=== PATIENT | female | born 1995 | race Caucasian/White ===

== ENCOUNTER 2022-07-31 10:02 | Emergency (ER) | payer MEDICAID, SELFPAY ==
[2022-07-31 10:10] VITALS: BP 125/80; PULSE 83; RESP 20; TEMP 36.7; O2SAT 98; BMI 28.9
--- NOTE | 2022-07-31 10:25 | EXP.UTC ---
Discharge Plan Disposition Patient Disposition: Home, Self-Care Condition: Good Prescriptions Prescriptions: New prednisone 5 mg tablets,dose pack See Rx Instructions .ROUTE .COMPLEX Qty: 21 0RF Rx Instructions: take as directed on package instructions Referrals Follow up/Referrals: Provider,Referral, MD [Primary Care Provider] - See instructions Activity Restrictions/Add. Instructions Additional Instructions/Restrictions: Oatmeal bathes may help with itching and irritation of rash Start oral steriods tomorrow Follow up with your Family Doctor and OBGYN if no improvement or any worsening of symptoms Return if needed Straight to ER if any life threatening symptoms Over the counter benadryl may help with the itching Make sure to moisturize the skin may try coal tar soap this may help with the itching of the skin Clinical Impressions Clinical Impression: Urticaria Instructions Patient Instructions: JESSICA Hunt for Hives, Prednisone Discharge ED Provider: Julianne Mcgowan [facility] [place] General Stated complaint: 3 Wks , rash arms/legs,abd Mode of Arrival: Ambulatory Source of Information: Patient Limitations: No Limitations Time Seen by Provider: 07/31/22 10:25 Description of Symptoms (Recalled from Triage Doc. by RN): PATIENT C/O RASH TO STOMACH THAT STARTED APPROX 1.5 WEEKS AGO AND HAS SINCE SPREAD TO LEGS, ARMS, AND BACK. HEENT Symptoms (Recalled from RN notes): No Resp Symptoms (Recalled from RN notes): No Skin Symptoms (Recalled from RN notes): Yes MS Symptoms (Recalled from RN notes): No Functional Status (Recalled from RN notes): WNL History of Present Illness Provider Complaint: Patient states that she had a baby about 3 weeks ago States that she started with rash on her abdomen and it has since spread to her arms,legs, abdomen and back and it is very itchy States that she thought it was postpardom rash and she has been using topical steriod creams but hasnt helped States that she is not sure if she may be having a reaction to something or not Related Data Previous Rx's Medication Instructions Recorded prednisone 5 mg tablets in a dose See Rx Instructions PO .COMPLEX 07/31/22 pack #21 tabs Allergies Allergy/AdvReac Type Severity Reaction Status Date / Time No Known Allergies Allergy Verified 07/31/22 10:20 Worker's Comp Is this a Worker's Comp case?: No [facility] Disclaimer: The information contained in this section may have been updated after the patient was seen, as this information can be updated by other users. Medical History (Updated 07/31/22 @ 10:30 by Julianne Mcgowan APRN) Anxiety GERD (gastroesophageal reflux disease) Surgical History (Updated 07/31/22 @ 10:20 by Naima Lopez RN) Hx of tonsillectomy Social History Smoking Status: Unknown if ever smoked alcohol intake: never current occupational status: employed Travel in the last 8 weeks: None ROS Obtained: Yes All systems reviewed & no additional complaints except as documented and Yes Systems reviewed as appropriate & no additional complaints except as documented Constitutional Constitutional: Reports system reviewed and no additional complaints, except as documented and Reports as per HPI ENT Ears, Nose, Mouth, and Throat: Reports system reviewed and no additional complaints, except as documented and Reports as per HPI Cardiovascular Cardiovascular: Reports system reviewed and no additional complaints, except as documented and Reports as per HPI Respiratory Respiratory: Reports system reviewed and no additional complaints, except as documented and Reports as per HPI Integumentary/Breasts Skin/Breast: Reports system reviewed and no additional complaints, except as documented, Reports as per HPI, Reports pruritus and Reports rash Physical Exam General General appearance: alert and in no apparent distress Respiratory Respiratory exam: Present normal lung sounds bilaterally; Absent respir
[2022-07-31 10:54] VITALS: BP 125/80; PULSE 83; RESP 20; TEMP 36.7; O2SAT 98
== END 2022-07-31 11:00 | disposition home or self-care (01) ==
PROVIDERS: Emergency Provider Nurse Practitioner
DX: O99.73 Diseases of the skin and subcutaneous tissue complicating the puerperium (principal); L50.9 Urticaria, unspecified
CPT/HCPCS: 96372; 99204; 99212; G0463

== ENCOUNTER → 2023-03-03 23:09 | Outpatient (CLI) | payer MEDICAID, SELFPAY ==
[2023-03-03 17:56] LABS: Coronavirus 19, PCR Not Detected (NotDetected); Influenza A, PCR Not Detected (NotDetected); Influenza B, PCR Not Detected (NotDetected)
== END ==
PROVIDERS: PCP Student in an Organized Health Care Education/Training Program; Visit Provider Student in an Organized Health Care Education/Training Program
DX: R05.9 Cough, unspecified (principal)
CPT/HCPCS: 87636

== ENCOUNTER 2025-02-25 12:04 | Emergency (ER) | payer SELFPAY ==
[2025-02-25 12:26] VITALS: BP 159/95; PULSE 110; RESP 18; TEMP 37.2; O2SAT 99; BMI 25.0
[2025-02-25 12:41] LABS: Microscopic, Urine URINE MICROSCOPIC (MICROSCOPIC)
[2025-02-25 12:42] LABS: Hematocrit 41.0 % (37.0-47.0); Hemoglobin 15.0 g/dL (12.2-16.2); Immature Granulocytes % 0.4 %; Mean Corpuscular HGB Conc 36.6 g/dL (31.8-35.4); Mean Corpuscular Hemoglobin 31.8 pg (27.0-31.2); Mean Corpuscular Volume 86.9 fl (81-99); Nucleated Red Blood Cells % 0 %; Platelet Count 261 K/mm3 (142-424); Red Blood Count 4.72 M/mm3 (4.20-5.40); Red Cell Distribution Width-SD 36.5 fL; White Blood Count 14.0 K/mm3 (4.8-10.8)
[2025-02-25 12:46] LABS: Bilirubin,Urine Negative (Negative); Color,Urine YELLOW (Yellow); Glucose,Urine (UA) Negative (Negative); Ketones,Urine Negative (Negative); Leukocyte Esterase,Urine Negative (Negative); PH,Urine 6.0 (5.0-8.5); Protein,Urine Negative (Negative); Specific Gravity, Urine >= 1.030 (1.005-1.030); Urobilinogen,Urine 0.2 EU/dl (0.2)
[2025-02-25 12:47] LABS: Urine Pregnancy, HCG Qual. Negative (Negative)
[2025-02-25 12:48] LABS: Anion Gap 18.0 mEq/L (5-15); Blood Urea Nitrogen 12 mg/dl (7-17); Carbon Dioxide 24 mmol/L (22.0-30.0); Chloride 103 mmol/L (98-107); Creatinine,Serum 0.70 mg/dl (0.52-1.04); Potassium 4.0 mmoL/L (3.5-5.1); Sodium 141 mmol/L (136-145)
[2025-02-25 12:49] LABS: Alanine Aminotransferase 34 U/L (12-78); Albumin Level 5.1 g/dl (3.5-5.0); Albumin/Globulin Ratio 1.2 (1.1-1.8); Alkaline Phosphatase 82 U/L (38-126); Aspartate Amino Transferase 37 U/L (14-36); Bilirubin,Total 3.9 mg/dl (0.2-1.3); Calcium 9.8 mg/dl (8.4-10.2); Creatinine Clearance Estimated 135 mL/min (50-200); Estimated Glomerular Filt Rate 98 ml/min (>60); GFR (African American) 119 ML/MIN (>60); Globulin 4.3 g/dL (1.3-3.2); Glucose 96 mg/dl (74-100); Lipase 64 U/L (23-300); Total Protein,Serum 9.4 g/dl (6.3-8.2)
[2025-02-25 13:16] LABS: Bacteria,Urine 1+ /lpf; Mucus,Urine 4+ /lpf
[2025-02-25 14:27] LABS: Hepatitis C Ab Qual. W/ RFX NEGATIVE (Negative)
[2025-02-25 14:48] VITALS: BP 128/85; PULSE 99; RESP 18; O2SAT 100
--- NOTE | 2025-02-25 15:07 | XR_ITS ---
PROCEDURE INFORMATION: Exam: XR Chest Exam date and time: 02/25/2025 3:39 PM Age: 29 years old Clinical indication: Shortness of breath; Additional info: Short of breath TECHNIQUE: Imaging protocol: Radiologic exam of the chest. Views: 1 view. COMPARISON: No relevant prior studies available. FINDINGS: Lungs: Clear lungs. Pleural spaces: No pneumothorax or pleural effusion. Heart/Mediastinum: Heart size is normal. Bones/joints: Unremarkable. IMPRESSION: No acute findings.
--- NOTE | 2025-02-25 15:07 | CT_ITS ---
PROCEDURE INFORMATION: Exam: CT Abdomen And Pelvis With Contrast Exam date and time: 02/25/2025 3:45 PM Age: 29 years old Clinical indication: Abdominal pain TECHNIQUE: Imaging protocol: Computed tomography of the abdomen and pelvis with contrast. Radiation optimization: All CT scans at this facility use at least one of these dose optimization techniques: automated exposure control; mA and/or kV adjustment per patient size (includes targeted exams where dose is matched to clinical indication); or iterative reconstruction. Contrast material: ISOVUE; Contrast volume: 75 ml; Contrast route: IV; COMPARISON: CR XR CHEST PORTABLE 02/25/2025 3:39 PM FINDINGS: Pleural spaces: Calcified pleural plaque at the left lung base. Liver: Unremarkable. No abnormally enhancing liver lesions. Gallbladder and biliary ducts: Gallbladder/biliary ducts: Cholecystectomy. No biliary ductal dilatation. Pancreas: Unremarkable. No pancreatic ductal dilatation. Spleen: Unremarkable. Adrenal glands: The adrenal glands are unremarkable. Kidneys and ureters: Symmetric bilateral renal enhancement. No hydronephrosis. No radiopaque renal or urinary tract stones. Stomach and bowel: The stomach is unremarkable. No bowel obstruction. Appendix: Appendix is unremarkable. Intraperitoneal space: No ascites or intraperitoneal free air. Vasculature: Unremarkable. Lymph nodes: No abdominal or pelvic adenopathy. Urinary bladder: Unremarkable. Reproductive: Uterus and adnexa are unremarkable. Bones/joints: No acute fracture or dislocation. Soft tissues: Unremarkable. IMPRESSION: No acute findings.
--- NOTE | 2025-02-25 15:21 | ED_ITS ---
<Statement entered by Greer Chandler DO - 02/27/25 00:11> I was consulted by the LUZ, and we discussed the complexity of problems being addressed. I approve the treatment and management plan for this patient's care in the emergency department, thus performing a substantial portion of the medical decision making. Greer Chandler DO Discharge Plan Disposition Chief Complaint: Abdominal Pain Prescriptions Prescriptions: No Action dicyclomine 10 mg capsule 10 mg PO BID PRN amoxicillin 500 mg tablet 500 mg PO BID 10 Days Qty: 20 0RF Referrals Follow up/Referrals: Annabelle Hidalgo APRN [Primary Care Provider, Medical] - See instructions Instructions Patient Instructions: DI for Acute Abdominal Pain Print Language Print Language: Egyptian Discharge ED Provider: Greer Chandler General Adult HPI General Chief complaint: Abdominal Pain Stated complaint: R side pain, vomiting Time Seen by Provider: 02/25/25 15:01 Mode of Arrival: Ambulatory Source of Information: Patient Description of Symptoms (Recalled from ER Triage Doc. by RN): pt presents to the ED with nausea and vomiting. pt reports that it started this morning. pt states that she abdominal pain on the right side that radiates to her back. pt denies chest pain and shortness of breath. pt had gallbladder surgey last year. History of Present Illness HPI narrative: Presents to the ED today with complaint of abdominal pain that starts in her left upper quadrant and moves around to her right upper quadrant. Patient had this started today. And it hurts worse in her right upper quadrant. Patient denies chest pain or shortness of breath. She had her gallbladder removed last year. She says she has been feeling well this morning. Her hip is below grade on exam. She does have IBS with diarrhea so she is unsure if the diarrhea is from IBS. This illness. She has been feeling hot and flushed. Related Data Home Medications ?Medication ?Instructions ?Recorded ?Confirmed dicyclomine 10 mg capsule 10 mg PO BID PRN 12/15/24 Previous Rx's ?Medication ?Instructions ?Recorded amoxicillin 500 mg tablet 500 mg PO BID 10 days #20 ta bs 12/15/24 Allergies Allergy/AdvReac Type Severity Reaction Status Date / Time No Known Allergies Allergy Verified 12/15/24 17:33 [facility] Disclaimer: The information contained in this section may have been updated after the patient was seen, as this information can be updated by other users. Medical History GERD (gastroesophageal reflux disease) Anxiety Surgical History Hx of tonsillectomy Social History Smoking Status: Never smoker alcohol intake: never current occupational status: employed Travel in the last 8 weeks?: None Have you lived/traveled outside [place] in past 30 days?: No Contact w/someone who lives/traveled outside [place] past 30 days?: No Exposure to someone with infectious disease in past 14 days?: No Do you have a fever (greater than 100.4 F or 38 C)?: No Have you tested positive for COVID-19?: No Exposed to someone with COVID-19 in past 14 days?: No Do you have a sore throat?: No Do you have a cough?: No Do you have any weakness?: No Do you have any diarrhea?: No Are you experiencing any unusual bleeding?: No Do you have any muscle aches/pain?: No Do you have any abdominal pain?: No Are you experiencing loss of taste or smell?: No ROS Obtained: Yes Systems reviewed as appropriate & no additional complaints except as documented Constitutional Constitutional: Reports as per HPI Physical Exam General General appearance: alert Head Head exam: normocephalic Eye Eye exam: Present PERRL and EOMI ENT ENT exam: Present normal oropharynx and mucous membranes moist Neck Neck exam: Present full ROM and trachea midline Respiratory Respiratory exam: Present normal lung sounds bilaterally Cardiovascular Cardiovascular exam: Present regular rate, normal rhythm, normal heart sounds, +S1 and +S2 Abdominal Exam Abdominal exam: Present soft, tenderness and normal bowel sounds Extremities Exam Extremities exam: Present full ROM and normal capillary refill Neurological Exam Neurological exam: Present alert and oriented X3 Skin Skin exam: Present warm and dry Medical Decision Making Medical Records Screening: Per USPSTF and CDC recommendations, given the prevalence of disease in our region, it is our hospital?s policy to screen for HIV and viral Hepatitis for all patients aged 18 and over and those with ongoing risk factors. Doron Inquiry Pt receiving controlled substance: No Doron was queried for this patient: No Vital Signs: 02/25/25 12:26 02/25/25 13:54 02/25/25 14:48 Temperature 99 F Temperature Source Oral Temporal Artery Scan Pulse Rate 99 H Pulse Rate [Right] 110 H Respiratory Rate 18 18 Blood Pressure 128/85 Blood Pressure [Right Arm] 159/95 H Blood Pressure Mean [Right Arm] 116 Blood Pressure Source Automatic Cuff Automatic Cuff Blood Pressure Source [Right Arm] Automatic Cuff Blood Pressure Position Sitting Supine Blood Pressure Position [Right Arm] Supine 02 Sat by Pulse Oximetry 99 100 Oxygen Delivery Method Room Air Room Air Lab Data Lab Results 02/25/25 12:29: WBC 14.0 H, RBC 4.72, Hgb 15.0, Hct 41.0, MCV 86.9, MCH 31.8 H, MCHC 36.6 H, RDW 11.5, Plt Count 261, MPV 9.6, Neut % (Auto) 84.9 H, Lymph % (Auto) 6.6 L, [place] % (Auto) 6.4, Eos % (Auto) 1.4, Baso % (Auto) 0.3, Neut # (Auto) 11.9 H, Lymph # (Auto) 0.9, [place] # (Auto) 0.9, Eos # (Auto) 0.2, Baso # (Auto) 0.0, PT 11.6, INR 1.05, APTT 24.8, Sodium 141, Potassium 4.0, Chloride 103, Carbon Dioxide 24, Anion Gap 18.0 H, BUN 12, Creatinine 0.70, Estimated Creat Clear 135, Estimated GFR 98, Est GFR ( Amer) 119, Glucose 96, Calcium 9.8, Magnesium 1.7, Total Bilirubin 3.9 H, AST 37 H, ALT 34, Alkaline Phosphatase 82, Troponin I < 0.01, Total Protein 9.4 H, Albumin 5.1 H, Globulin 4.3 H, Albumin/Globulin Ratio 1.2, Lipase 64 02/25/25 12:29: Lipase 70, Urine Color Yellow, Urine Appearance Clear, Urine pH 6.0, Ur Specific [place] >= 1.030, Urine Protein Negative, Urine Glucose (UA) Negative, Urine Ketones Negative, Urine Blood Negative, Urine Nitrate Negative, Urine Bilirubin Negative, Urine Urobilinogen 0.2, Ur Leukocyte Esterase Negative, Urine RBC None, Urine WBC 3-5, Ur Squamous Epith Cells 5-10, Urine Bacteria 1+, Urine Mucus 4+, Urine HCG, Qual Negative, HCV Ab VICTOR HUGO w/Rflx PCR Qn Negative, HIV Ag/Ab Combo Qual Negative 02/25/25 12:29 02/25/25 12:29 Orders (Tests/Meds): ED MEDICATIONS Generic Name Dose Route Start Last Admin Trade Name Freq PRN Reason Stop Dose Admin Sodium Chloride 8 ml 02/25/25 15:07 Sodium Chloride 0.9% 10ml Vial IV 03/27/25 15:06 NEEDED PRN dilute pepcid Sodium Chloride 10 ml 02/25/25 15:44 Sodium Chloride 0.9% 10ml Syr (Rad Only) IV 03/27/25 15:43 NEEDED PRN Maintain IV Site Discontinued Medications Generic Name Dose Route Start Last Admin Trade Name Freq PRN Reason Stop Dose Admin Acetaminophen 1,000 mg 02/25/25 15:07 02/25/25 15:42 Acetaminophen 1,000mg/100ml Vial IV 02/25/25 15:08 1,000 mg ONCE ONE Administration Famotidine 20 mg 02/25/25 15:07 02/25/25 15:42 Famotidine 20mg/2ml Vial IV 02/25/25 15:08 20 mg ONCE ONE Administration Sodium Chloride 1,000 mls @ 999 mls/hr 02/25/25 15:07 02/25/25 15:33 Sod Chlor 0.9% 1000ml Bag IV 02/25/25 16:07 999 mls/hr .Q1H1M ONE Administration Iopamidol 75 ml 02/25/25 15:45 02/25/25 15:46 Iopamidol-370 (76%);100ml Bottle IV 02/25/25 15:46 75 ml ONCE ONE Administration Iopamidol 75 ml 02/25/25 15:44 02/25/25 15:50 Iopamidol-370 (76%);100ml Bottle IV 02/25/25 15:45 Not Given ONCE ONE Ketorolac Tromethamine 30 mg 02/25/25 15:07 02/25/25 15:37 Ketorolac 30mg/Ml Vial IV 02/25/25 15:08 30 mg ONCE ONE Administration Ondansetron HCl 4 mg 02/25/25 15:08 02/25/25 15:36 Ondansetron 4mg/2ml Vial IV 02/25/25 15:09 4 mg ONCE ONE Administration Sodium Chloride 10 ml 02/25/25 15:45 02/25/25 15:46 Sodium Chloride 0.9% 10ml Syr (Rad Only) IV 02/25/25 15:46 10 ml ONCE ONE Administration Sodium Chloride 50 ml 02/25/25 15:45 02/25/25 15:50 0.9 % Sodium Chloride 50 Ml Vial IV 02/25/25 15:46 Not Given ONCE ONE ORDERS Category Date Time Status CT abdomen pelvis w con Stat Cat Scan 02/25/25 15:07 Completed Chest XR -- portable [XR chest portable] Stat Exams 02/25/25 15:07 Completed Complete Blood Count Auto Diff Stat Lab 02/25/25 12:29 Completed Comprehensive Metabolic Panel Stat Lab 02/25/25 12:29 Completed HIV Combo Stat Lab 02/25/25 12:29 Completed Hepatitis C Ab Qual. W/ RFX Stat Lab 02/25/25 12:29 Completed Lipase Stat Lab 02/25/25 12:29 Completed Lipase Stat Lab 02/25/25 12:29 Completed Magnesium Stat Lab 02/25/25 12:29 Completed PT INR [Prothrombin Time INR] Stat Lab 02/25/25 12:29 Completed PTT [Activated Partial Thrombo Time] Stat Lab 02/25/25 12:29 Completed Rapid PCR Covid and Flu A/B Stat Lab 02/25/25 16:24 Received Trop I [Troponin I] Stat Lab 02/25/25 12:29 Completed Troponin I Q3H Lab 02/25/25 18:15 Ordered Troponin I Q3H Lab 02/25/25 21:15 Ordered UA [Urinalysis and Microscopic] Stat Lab 02/25/25 12:29 Completed Urine , HCG Qual. Stat Lab 02/25/25 12:29 Completed Medical Decision Narrative: patient is a insert review patient is a female presenting to the emergency department for evaluation of abdominal pain nausea, vomiting. Patient is hemodynamically stable and nontoxic-appearing upon arrival, low-grade temp at 99. Differential diagnosis includes blocked bile duct, viral illness, kidney stones, sbo, pancreatitis, etc. Workup will be conducted with hematologic labs, specific imaging. Initial inventions include crystalloid bolus, analgesics, antibiotic. Initial workup reviewed by wa hematologic labs are remarkable for white count of 14,normal electrolytes, 3-5 wbc in urine, squamous epith. 5-10, urine bacteria 1+. urine mucous 4+ however nothing to treat, I discussed this with Dr Chandler. Will treat as viral illness. Patient will follow with her pcp Critical Care Critical Care Time Critical Care Time: No
[2025-02-25] MEDS: 0.9 % SODIUM CHLORIDE 1000ML 1,000 ML 999 ML IV (15:33)
[2025-02-25] MEDS: ONDANSETRON 4MG/2ML VIAL 4 MG IV (15:36)
[2025-02-25] MEDS: KETOROLAC 30MG/ML VIAL 30 MG IV (15:37)
[2025-02-25] MEDS: ACETAMINOPHEN 1,000MG/100ML VIAL 1000 MG IV (15:42)
[2025-02-25] MEDS: FAMOTIDINE 20MG/2ML VIAL 20 MG IV (15:42)
[2025-02-25] MEDS: SODIUM CHLORIDE 0.9% 10ML SYR (RAD ONLY) 10 ML IV (15:46)
[2025-02-25] MEDS: IOPAMIDOL-370 (76%);100ML BOTTLE 75 ML IV (15:46)
--- NOTE | 2025-02-25 16:06 | ECG_ITS ---
APPROVED REPORT Exam: Resting ECG HR:85 bpm ECG Measurements Heart Rate 85 AXES MT 172 P 71 QRSd 98 QRS 67 QT 366 T 61 QTc 408 Conclusion SINUS RHYTHM POSSIBLE LEFT ATRIAL ENLARGEMENT [-0.1mV P-WAVE IN V1/V2] POSSIBLE RIGHT VENTRICULAR CONDUCTION DELAY [RSR (QR) IN V1/V2] No STEMI Electronically signed by : JOELLE HOPPER, 02/28/2025 03:09:32
[2025-02-25 16:33] LABS: Coronavirus 19, PCR Not Detected (NotDetected); Influenza A, PCR Not Detected (NotDetected); Influenza B, PCR Not Detected (NotDetected)
[2025-02-25 16:37] LABS: Lipase 70 U/L (23-300); Magnesium 1.7 mg/dl (1.6-2.3)
[2025-02-25 16:42] LABS: Activated Partial Thrombo Time 24.8 seconds (22.8-30.6); INR 1.05 (0.9-1.1); Prothrombin Time 11.6 seconds (10.1-12.5)
[2025-02-25 17:00] LABS: Troponin I < 0.01 ng/ml (0.00-0.034)
[2025-02-25 17:32] VITALS: BP 106/66; PULSE 70; RESP 16; TEMP 37.1; O2SAT 99
== END 2025-02-25 17:38 | disposition home or self-care (01) ==
PROVIDERS: Emergency Medicine; Nurse Practitioner; Emergency Provider Student in an Organized Health Care Education/Training Program; PCP Nurse Practitioner Family
DX: R10.12 Left upper quadrant pain (principal); R10.11 Right upper quadrant pain; R11.2 Nausea with vomiting, unspecified
CPT/HCPCS: 71045; 74177; 80053; 81001; 81025; 83690; 83735; 84484; 85025; 85610; 85730; 86803; 87389; 87636; 93005; 96361; 96374; 96375; 99285; J0131; J1308; J1885; J2405; J7030; Q9967